=== PATIENT | female | born 1995 | race Hispanic/Latino ===

== ENCOUNTER 2017-12-28 07:56 | Emergency (ER) | payer OTHER ==
[~2017-12-28 07:56] MED LIST: HYDR200T4 PO; LEVO500T89 PO; PANT20TA12 PO
[2017-12-28] MEDS ORDERED: DEXAMETHASONE SOD PHOSPHATE 10MG/ML 1ML VIAL ONE (08:31)
[2017-12-28] MEDS ORDERED: KETOROLAC TROMETHAMINE 30MG/ML ONE (08:32)
[2017-12-28 08:35] LABS: BASOPHILS % (AUTO) 0.3 % (0.0-5.0); EOSINOPHILS % (AUTO) 0.2 % (0.0-8.0); HEMATOCRIT 30.9 % (36-48); LYMPHOCYTES % (AUTO) 18.2 % (21.0-51.0); MEAN CORPUSCULAR HEMOGLOBIN 27.4 pg (27.0-33.0); MEAN CORPUSCULAR HGB CONC 35.8 g/dL (32.0-36.0); MEAN CORPUSCULAR VOLUME 76.6 fL (80-100); MONOCYTES % (AUTO) 5.3 % (3.0-13.0); NUCLEATED RED BLOOD CELLS 0.1 % (0.0-0.19); PLATELET COUNT (AUTO) 117 K/uL (130-400); RED BLOOD CELL COUNT(AUTO) 4.03 MIL/uL (4.00-5.50); RED CELL DISTRIBUTION WIDTH 14.9 % (11.0-15.5); WHITE BLOOD COUNT (AUTO) 5.3 K/uL (4.8-10.8)
[2017-12-28 08:45] LABS: POTASSIUM 3.6 mmol/L (3.5-5.1)
[2017-12-28 08:51] LABS: ALBUMIN 3.9 g/dL (3.5-5.0); BILIRUBIN,TOTAL 0.7 mg/dL (0.2-1.0); TOTAL PROTEIN, SERUM 7.8 g/dL (6.0-8.3)
[2017-12-28 09:43] LABS: ERYTHROCYTE SEDIMENTATION RATE 48 MM/HR (0-15)
[2017-12-28] MEDS ORDERED: MORPHINE SULFATE 4 MG/1ML SYG ONE (11:48)
[2017-12-28] MEDS ORDERED: ONDANSETRON HCL MDV 20ML 2 MG/ML VIAL ONE (11:48)
== END 2017-12-28 13:34 | disposition home or self-care (01) ==
LOC: EDH 07:56
DX: M32.19 Other organ or system involvement in systemic lupus erythematosus (principal); I10 Essential (primary) hypertension; M19.90 Unspecified osteoarthritis, unspecified site; Z79.899 Other long term (current) drug therapy
CPT/HCPCS: 36415; 80053; 85025; 85651; 96374; 96375; 99284; J1100; J1885; J2270

== ENCOUNTER 2018-02-21 06:29 | Emergency (ER) | payer OTHER ==
[2018-02-21 08:02] LABS: BASOPHILS % (AUTO) 0.5 % (0.0-5.0); EOSINOPHILS % (AUTO) 0.2 % (0.0-8.0); HEMATOCRIT 31.6 % (36-48); LYMPHOCYTES % (AUTO) 13.6 % (21.0-51.0); MEAN CORPUSCULAR HEMOGLOBIN 26.6 pg (27.0-33.0); MEAN CORPUSCULAR VOLUME 78.2 fL (80-100); MONOCYTES % (AUTO) 7.2 % (3.0-13.0); NEUTROPHILS % (AUTO) 78.5 % (40.0-77.0); PLATELET COUNT (AUTO) 159 K/uL (130-400); RED BLOOD CELL COUNT(AUTO) 4.03 MIL/uL (4.00-5.50); RED CELL DISTRIBUTION WIDTH 16.2 % (11.0-15.5)
[2018-02-21 08:11] LABS: CREATININE 0.8 mg/dL (0.5-1.5)
[2018-02-21] MEDS ORDERED: ONDANSETRON HCL 4 MG/2 ML VIAL ONE (08:11)
[2018-02-21] MEDS ORDERED: METHYLPREDNISOLONE SOD SUCC 125MG/2ML VIAL ONE (08:11)
[2018-02-21] MEDS ORDERED: MORPHINE SULFATE 4 MG/1ML SYG ONE (08:11)
[2018-02-21] MEDS ORDERED: SODIUM CHLORIDE 0.9% 500ML 500 ML IV ONE (08:11)
[2018-02-21 08:17] LABS: ALBUMIN 3.3 g/dL (3.5-5.0); BILIRUBIN,TOTAL 0.3 mg/dL (0.2-1.0); TOTAL PROTEIN, SERUM 6.9 g/dL (6.0-8.3)
[2018-02-21 08:21] LABS: INR 0.92 (0.85-1.15); PARTIAL THROMBOPLASTIN TIME 28.1 SEC (26.3-35.5); PROTHROMBIN TIME 9.7 SEC (9.6-11.6)
== END 2018-02-21 09:59 | disposition home or self-care (01) ==
LOC: EDH 06:29
DX: M32.9 Systemic lupus erythematosus, unspecified (principal); M79.602 Pain in left arm; M19.90 Unspecified osteoarthritis, unspecified site; I10 Essential (primary) hypertension
CPT/HCPCS: 36415; 80053; 84703; 85025; 85610; 85651; 85730; 93005; 93971; 96374; 96375; 99285; J2270; J2405; J2930; J7040

== ENCOUNTER 2021-06-20 21:41 | Inpatient (IN) | payer BC, OTHER ==
[~2021-06-20] VITALS: Ht 162.6 cm; Wt 92.4 kg
[~2021-06-20 21:41] MED LIST changes: +ALEN35TA53 PO; +BENA10TA77 PO; +CHOL50004 PO; -LEVO500T89 PO; +METO50TA18 PO; +MYCO500T PO; -PANT20TA12 PO; +PRED10TA3 PO
[2021-06-20 22:35] LABS: HEMATOCRIT 28.4 % (36-48); MEAN CORPUSCULAR HEMOGLOBIN 25.5 pg (27.0-33.0); MEAN CORPUSCULAR HGB CONC 33.1 g/dL (32.0-36.0); PLATELET COUNT (AUTO) 62 K/uL (130-400); RED BLOOD CELL COUNT(AUTO) 3.69 MIL/uL (4.00-5.50); RED CELL DISTRIBUTION WIDTH 14.7 % (11.0-15.5); WHITE BLOOD COUNT (AUTO) 3.4 K/uL (4.8-10.8)
[2021-06-20 22:41] LABS: CREATININE 1.8 mg/dL (0.5-1.5); POTASSIUM 4.2 mmol/L (3.5-5.1)
[2021-06-20 22:45] LABS: ALBUMIN 3.1 g/dL (3.5-5.0); BILIRUBIN,TOTAL 0.5 mg/dL (0.2-1.0); TOTAL PROTEIN, SERUM 6.9 g/dL (6.0-8.3)
[2021-06-20 22:51] LABS: BASOPHILS % (AUTO) 0.3 % (0.0-5.0); LYMPHOCYTES % (AUTO) 13.1 % (21.0-51.0); MONOCYTES % (AUTO) 8.1 % (3.0-13.0); NEUTROPHILS % (AUTO) 78.2 % (40.0-77.0)
[2021-06-20 23:49] LABS: BAND NEUTROPHILS % (MANUAL) 15 % (0-2); EOSINOPHILS % (MANUAL) 1 % (1-6); LYMPHOCYTES % (MANUAL) 11 % (22-44); MAN.DIFF COMMENT-IMPRESSION MANUAL DIFFERENTIAL; MONOCYTES % (MANUAL) 3 % (2-9); SEGMENTED NEUTROPHILS % 70 % (40-70)
[2021-06-21] MEDS ORDERED: CEFTRIAXONE 1G VIAL IVP ONE (01:30)
[2021-06-21] MEDS ORDERED: 0.9%NACL 1000ML 1,000 ML IV ONE (01:30)
[2021-06-21] MEDS ORDERED: ACETAMINOPHEN 500 MG TABLET PO ONE (01:30)
[2021-06-21 02:26] LABS: CRP QUANTITATIVE 3.2 mg/L (0.00-9.0)
[2021-06-21 04:36] LABS: APPEARANCE,URINE Cloudy (CLEAR); BILIRUBIN,URINE Negative (NEGATIVE); COLOR,URINE Dark Yellow (YELLOW); GLUCOSE, URINE (UA) Negative (NEGATIVE); KETONES,URINE Trace mg/dL (NEGATIVE); LEUKOCYTE ESTERASE ,URINE Negative (NEGATIVE); NITRATE,URINE Negative (NEGATIVE); OCCULT BLOOD,URINE Moderate (NEGATIVE); PROTEIN,URINE >=1000 mg/dL (NEGATIVE); UROBILINOGEN,URINE 0.2 mg/dL (0.2-1.0)
[2021-06-21 04:54] LABS: BACTERIA,URINE None Seen /HPF (None Seen); SQUAMOUS EPITHELIAL CELL,UR Few /HPF (0-2); WBC,URINE None Seen /HPF (0-1)
[2021-06-21 04:55] LABS: AMORPHOUS SEDIMENT,UR Few /LPF (None Seen); HYALINE CASTS, URINE 0-1 /LPF (0-1 /LPF)
[2021-06-21] MEDS ORDERED: SOLU-MEDROL 125MG VIAL IVP ONE (05:30)
[2021-06-21] MEDS ORDERED: ACETAMINOPHEN 325 MG TAB PO PRN (05:30)
[2021-06-21] MEDS ORDERED: NITROGLYCERIN 0.4 MG SL TAB SL PRN (05:30)
[2021-06-21] MEDS ORDERED: ONDANSETRON 4MG INJ IV PRN (05:30)
[2021-06-21] MEDS: 0.9%NACL 1000ML 1,000 ML IV SCH ×2 (07:10→15:30)
[2021-06-21 07:57] LABS: HEMATOCRIT 25.8 % (36-48); LYMPHOCYTES % (AUTO) 27.5 % (21.0-51.0); MEAN CORPUSCULAR HEMOGLOBIN 25.7 pg (27.0-33.0); MEAN CORPUSCULAR HGB CONC 32.9 g/dL (32.0-36.0); MEAN CORPUSCULAR VOLUME 77.9 fL (79-99); MONOCYTES % (AUTO) 7.7 % (3.0-13.0); NEUTROPHILS % (AUTO) 64.3 % (40.0-77.0); PLATELET COUNT (AUTO) 58 K/uL (130-400); RED BLOOD CELL COUNT(AUTO) 3.31 MIL/uL (4.00-5.50); RED CELL DISTRIBUTION WIDTH 14.7 % (11.0-15.5); WHITE BLOOD COUNT (AUTO) 2.2 K/uL (4.8-10.8)
[2021-06-21 08:12] LABS: INR 1.04 (0.85-1.15); PROTHROMBIN TIME 11.3 SEC (9.6-11.6)
[2021-06-21 08:13] LABS: PARTIAL THROMBOPLASTIN TIME 36.4 SEC (26.3-35.5)
[2021-06-21 08:18] LABS: ALBUMIN 2.8 g/dL (3.5-5.0); BILIRUBIN,TOTAL 0.4 mg/dL (0.2-1.0); MAGNESIUM 1.6 mg/dL (1.80-2.40); POTASSIUM 4.1 mmol/L (3.5-5.1); TOTAL PROTEIN, SERUM 6.2 g/dL (6.0-8.3)
[2021-06-21 08:41] LABS: % IRON SATURATION 9.6 % (22-44)
[2021-06-21] MEDS: FAMOTIDINE 20MG TAB PO SCH (09:00)
[2021-06-21] MEDS ORDERED: SOLU-MEDROL 125MG VIAL ONE (10:03)
[2021-06-21] MEDS ORDERED: MAGNESIUM 2GM PREMIX 50ML 50 ML IV PRN (15:30)
[2021-06-21] MEDS: CEFTRIAXONE 1G VIAL IVP SCH (15:35)
[2021-06-21] MEDS: SOLU-MEDROL 40MG VIAL IVP SCH (15:35)
[2021-06-21] MEDS: ACETAMINOPHEN 325 MG TAB PO PRN ×2 (20:19→22:23)
[2021-06-21] MEDS ORDERED: HYDROMORPHONE 0.5 MG SYG (0.5MG/0.5ML) IVP PRN (20:30)
[2021-06-22] VITALS (7 sets, daily range): BP systolic 129–168; BP diastolic 92–111
[2021-06-22] MEDS ORDERED: ASCO500C18 PO (00:26)
[2021-06-22] MEDS ORDERED: VITAD50000 PO (00:26)
[2021-06-22] MEDS ORDERED: ALBUHFA IH (00:26)
[2021-06-22] MEDS ORDERED: ONDA4TAB10 PO (00:26)
[2021-06-22] MEDS ORDERED: FLUT1BLS IH (00:26)
[2021-06-22] MEDS: SOLU-MEDROL 40MG VIAL IVP SCH ×2 (01:04→08:09)
[2021-06-22] MEDS: HYDRALAZINE 20MG/ML VIAL IV SCH (01:04)
[2021-06-22] MEDS: 0.9%NACL 1000ML 1,000 ML IV SCH ×3 (01:30→16:26)
[2021-06-22 05:44] LABS: HEMATOCRIT 26.7 % (36-48); MEAN CORPUSCULAR HEMOGLOBIN 25.4 pg (27.0-33.0); MEAN CORPUSCULAR VOLUME 77.2 fL (79-99); MONOCYTES % (AUTO) 6.3 % (3.0-13.0); NEUTROPHILS % (AUTO) 43.7 % (40.0-77.0); PLATELET COUNT (AUTO) 59 K/uL (130-400); RED BLOOD CELL COUNT(AUTO) 3.46 MIL/uL (4.00-5.50)
[2021-06-22 05:55] LABS: WHITE BLOOD COUNT (AUTO) 1.1 K/uL (4.8-10.8)
[2021-06-22 05:59] LABS: ALANINE AMINOTRANSFERASE 38 U/L (12-78); ALBUMIN 2.9 g/dL (3.5-5.0); ASPARTATE AMINOTRANSFERASE 77 U/L (10-37); BILIRUBIN,TOTAL 0.3 mg/dL (0.2-1.0); CARBON DIOXIDE 16 mmol/L (21-32); CHLORIDE 109 mmol/L (101-111); CREATININE 1.5 mg/dL (0.5-1.5); GLOMERULAR FILTR. RATE CALC 45 mL/min (>60); GLUCOSE,RANDOM 129 mg/dL (70-105); POTASSIUM 4.1 mmol/L (3.5-5.1); SODIUM SERUM 140 mmol/L (136-145); TOTAL PROTEIN, SERUM 6.4 g/dL (6.0-8.3); UREA NITROGEN, BLOOD 34 mg/dL (7-18)
[2021-06-22 06:00] LABS: CRP QUANTITATIVE < 2.00 mg/L (0.00-9.0)
[2021-06-22 06:58] LABS: ERYTHROCYTE SEDIMENTATION RATE 30 MM/HR (0-20)
[2021-06-22] MEDS: FAMOTIDINE 20MG TAB PO SCH (08:09)
[2021-06-22] MEDS ORDERED: COMPOUND IV MISC 1 EACH IVSOLN MISC PRN (10:30)
[2021-06-22] MEDS: IRON SUCROSE COMPLEX 300 MG in 0.9%NACL 50ML 50 ML IV SCH (12:54)
[2021-06-22] MEDS: METRONIDAZOLE 500MG/100ML BAG 100 ML IVPB SCH ×2 (16:25→20:57)
[2021-06-22] MEDS: CEFTRIAXONE 1G VIAL IVP SCH (16:25)
[2021-06-22 19:41] LABS: AMPHET/METH SCREEN,URINE NEGATIVE (NEGATIVE); BARBITURATE SCREEN, URINE NEGATIVE (NEGATIVE); BENZODIAZEPINES SCREEN,URINE NEGATIVE (NEGATIVE); CANNABINOID SCREEN,URINE NEGATIVE (NEGATIVE); COCAINE SCREEN,URINE NEGATIVE (NEGATIVE); OPIATE SCREEN,URINE NEGATIVE (NEGATIVE); PHENCYCLIDINE SCREEN,URINE NEGATIVE (NEGATIVE)
[2021-06-22] MEDS: ALBUTEROL INHALER IH SCH (20:57)
[2021-06-22] MEDS: MYCOPHENOLATE MOFETIL 250 MG CAPSULE PO SCH (20:57)
[2021-06-22] MEDS: HYDROXYCHLOROQUINE SULFATE 200 MG TAB PO SCH (20:57)
[2021-06-23] VITALS (19 sets, daily range): BP systolic 119–156; BP diastolic 75–110
[2021-06-23] MEDS: HYDRALAZINE 20MG/ML VIAL IV SCH (01:59)
[2021-06-23] MEDS: 0.9%NACL 1000ML 1,000 ML IV SCH ×2 (01:59→05:15)
[2021-06-23] MEDS ORDERED: HYDRALAZINE 20MG/ML VIAL IV SCH (02:00)
[2021-06-23 04:29] LABS: HEMATOCRIT 25.4 % (36-48); LYMPHOCYTES % (AUTO) 24.4 % (21.0-51.0); MEAN CORPUSCULAR HEMOGLOBIN 25.9 pg (27.0-33.0); MEAN CORPUSCULAR HGB CONC 33.5 g/dL (32.0-36.0); MEAN CORPUSCULAR VOLUME 77.4 fL (79-99); MONOCYTES % (AUTO) 14.7 % (3.0-13.0); NEUTROPHILS % (AUTO) 60.5 % (40.0-77.0); PLATELET COUNT (AUTO) 75 K/uL (130-400); RED BLOOD CELL COUNT(AUTO) 3.28 MIL/uL (4.00-5.50); RED CELL DISTRIBUTION WIDTH 15.5 % (11.0-15.5); WHITE BLOOD COUNT (AUTO) 2.4 K/uL (4.8-10.8)
[2021-06-23 04:37] LABS: ALBUMIN 2.7 g/dL (3.5-5.0); BILIRUBIN,TOTAL 0.3 mg/dL (0.2-1.0); CREATININE 1.4 mg/dL (0.5-1.5); MAGNESIUM 2.3 mg/dL (1.80-2.40); PHOSPHORUS 4.4 mg/dL (2.5-4.9); POTASSIUM 3.8 mmol/L (3.5-5.1)
[2021-06-23] MEDS: METRONIDAZOLE 500MG/100ML BAG 100 ML IVPB SCH ×3 (05:13→20:49)
[2021-06-23 05:29] LABS: BAND NEUTROPHILS % (MANUAL) 10 % (0-2); LYMPHOCYTES % (MANUAL) 12 % (22-44); MAN.DIFF COMMENT-IMPRESSION MANUAL DIFFERENTIAL; MONOCYTES % (MANUAL) 8 % (2-9); REACTIVE LYMPHOCYTES 4 % (0-0); SEGMENTED NEUTROPHILS % 66 % (40-70)
[2021-06-23 05:30] LABS: PLATELET MORPHOLOGY COMMENT DECREASED
[2021-06-23] MEDS: FAMOTIDINE 20MG TAB PO SCH (07:55)
[2021-06-23] MEDS: HYDROXYCHLOROQUINE SULFATE 200 MG TAB PO SCH ×2 (07:55→20:50)
[2021-06-23] MEDS: MYCOPHENOLATE MOFETIL 250 MG CAPSULE PO SCH ×2 (07:56→20:50)
[2021-06-23] MEDS: AMLODIPINE 5 MG TAB PO SCH (07:56)
[2021-06-23] MEDS: ASCORBIC ACID 500 MG TAB PO SCH (07:57)
[2021-06-23] MEDS: FLUTICASONE/VILANTEROL 1 EACH BLST.W.DEV IH SCH (09:00)
[2021-06-23] MEDS ORDERED: LEVOFLOXACIN 750 MG/D5W 150 ML 150 ML IV SCH (09:00)
[2021-06-23] MEDS: ALBUTEROL INHALER IH SCH ×4 (09:00→20:56)
[2021-06-23] MEDS ORDERED: PROPOFOL 10 MG/ML 20ML VIAL IV ONE (12:07)
[2021-06-23] MEDS: SOLU-MEDROL 40MG VIAL IVP SCH ×2 (14:06→20:50)
[2021-06-23] MEDS: IRON SUCROSE COMPLEX 300 MG in 0.9%NACL 50ML 50 ML IV SCH (14:07)
[2021-06-23] MEDS ORDERED: PROMETHAZINE HCL 25 MG/ML 1ML AMPULE IM SCH (16:30)
[2021-06-23] MEDS: CEFTRIAXONE 1G VIAL IVP SCH (17:10)
[2021-06-24] VITALS (9 sets, daily range): BP systolic 127–146; BP diastolic 56–104
[2021-06-24] MEDS ORDERED: HYDRALAZINE 20MG/ML VIAL IV SCH (05:00)
[2021-06-24] MEDS: METRONIDAZOLE 500MG/100ML BAG 100 ML IVPB SCH ×2 (05:17→06:00)
[2021-06-24 05:21] LABS: HEMATOCRIT 24.7 % (36-48); LYMPHOCYTES % (AUTO) 13.5 % (21.0-51.0); MEAN CORPUSCULAR HEMOGLOBIN 25.1 pg (27.0-33.0); MEAN CORPUSCULAR HGB CONC 32.4 g/dL (32.0-36.0); MEAN CORPUSCULAR VOLUME 77.4 fL (79-99); MONOCYTES % (AUTO) 7.3 % (3.0-13.0); NEUTROPHILS % (AUTO) 78.7 % (40.0-77.0); PLATELET COUNT (AUTO) 71 K/uL (130-400); RED BLOOD CELL COUNT(AUTO) 3.19 MIL/uL (4.00-5.50); RED CELL DISTRIBUTION WIDTH 15.7 % (11.0-15.5); WHITE BLOOD COUNT (AUTO) 1.9 K/uL (4.8-10.8)
[2021-06-24 05:48] LABS: ALBUMIN 2.7 g/dL (3.5-5.0); BILIRUBIN,TOTAL 0.3 mg/dL (0.2-1.0); CREATININE 1.2 mg/dL (0.5-1.5); POTASSIUM 3.8 mmol/L (3.5-5.1)
[2021-06-24] MEDS: ALBUTEROL INHALER IH SCH ×4 (09:00→21:00)
[2021-06-24] MEDS: FAMOTIDINE 20MG TAB PO SCH (09:00)
[2021-06-24] MEDS: FLUTICASONE/VILANTEROL 1 EACH BLST.W.DEV IH SCH (09:00)
[2021-06-24] MEDS: PANTOPRAZOLE 40 MG TAB DR PO SCH (09:44)
[2021-06-24] MEDS: AMLODIPINE 5 MG TAB PO SCH (09:44)
[2021-06-24] MEDS: HYDROXYCHLOROQUINE SULFATE 200 MG TAB PO SCH ×2 (09:44→21:23)
[2021-06-24] MEDS: MYCOPHENOLATE MOFETIL 250 MG CAPSULE PO SCH ×2 (09:44→21:24)
[2021-06-24] MEDS: ASCORBIC ACID 500 MG TAB PO SCH (09:44)
[2021-06-24] MEDS: PREDNISONE 20 MG TABLET PO SCH (21:23)
[2021-06-24] MEDS: FERROUS GLUCONATE TABLET PO SCH (21:24)
[2021-06-25 04:19] VITALS: BP 138/86
[2021-06-25 05:20] LABS: ALBUMIN 2.8 g/dL (3.5-5.0); BILIRUBIN,TOTAL 0.4 mg/dL (0.2-1.0); CREATININE 1.1 mg/dL (0.5-1.5); EOSINOPHILS % (AUTO) 0.5 % (0.0-8.0); MEAN CORPUSCULAR HEMOGLOBIN 25.6 pg (27.0-33.0); MEAN CORPUSCULAR HGB CONC 32.4 g/dL (32.0-36.0); MEAN CORPUSCULAR VOLUME 78.9 fL (79-99); MONOCYTES % (AUTO) 9.7 % (3.0-13.0); NEUTROPHILS % (AUTO) 65.1 % (40.0-77.0); PLATELET COUNT (AUTO) 85 K/uL (130-400); POTASSIUM 3.7 mmol/L (3.5-5.1); RED BLOOD CELL COUNT(AUTO) 3.17 MIL/uL (4.00-5.50); RED CELL DISTRIBUTION WIDTH 15.7 % (11.0-15.5); TOTAL PROTEIN, SERUM 5.8 g/dL (6.0-8.3); WHITE BLOOD COUNT (AUTO) 1.9 K/uL (4.8-10.8)
[2021-06-25 08:00] VITALS: BP 136/94
[2021-06-25] MEDS: ASCORBIC ACID 500 MG TAB PO SCH (08:41)
[2021-06-25] MEDS: FAMOTIDINE 20MG TAB PO SCH (08:41)
[2021-06-25] MEDS: FERROUS GLUCONATE TABLET PO SCH ×4 (08:41→21:13)
[2021-06-25] MEDS: HYDROXYCHLOROQUINE SULFATE 200 MG TAB PO SCH ×2 (08:41→21:07)
[2021-06-25] MEDS: PANTOPRAZOLE 40 MG TAB DR PO SCH (08:42)
[2021-06-25] MEDS: PREDNISONE 20 MG TABLET PO SCH ×3 (08:42→21:07)
[2021-06-25] MEDS: AMLODIPINE 5 MG TAB PO SCH (08:42)
[2021-06-25] MEDS: FLUTICASONE/VILANTEROL 1 EACH BLST.W.DEV IH SCH (08:43)
[2021-06-25] MEDS: ALBUTEROL INHALER IH SCH ×4 (08:43→21:00)
[2021-06-25] MEDS: MYCOPHENOLATE MOFETIL 250 MG CAPSULE PO SCH ×2 (08:43→21:07)
[2021-06-25] MEDS: DOCUSATE SODIUM 100 MG CAP PO SCH (09:00)
[2021-06-25 12:00] VITALS: BP 143/98
[2021-06-25 16:00] VITALS: BP 138/97
[2021-06-25 19:28] VITALS: BP 145/106
[2021-06-25] MEDS: LEVOFLOXACIN 750 MG TABLET PO SCH (21:07)
[2021-06-25 21:19] VITALS: BP 140/93
[2021-06-26 00:08] VITALS: BP 133/91
[2021-06-26 04:27] VITALS: BP 128/97
[2021-06-26 07:30] VITALS: BP 143/98
[2021-06-26] MEDS: FLUTICASONE/VILANTEROL 1 EACH BLST.W.DEV IH SCH (09:00)
[2021-06-26] MEDS: ALBUTEROL INHALER IH SCH ×3 (09:00→17:00)
[2021-06-26] MEDS: LEVOFLOXACIN 750 MG TABLET PO SCH (09:48)
[2021-06-26] MEDS: FAMOTIDINE 20MG TAB PO SCH (09:48)
[2021-06-26] MEDS: MYCOPHENOLATE MOFETIL 250 MG CAPSULE PO SCH (09:49)
[2021-06-26] MEDS: PANTOPRAZOLE 40 MG TAB DR PO SCH (09:49)
[2021-06-26] MEDS: PREDNISONE 20 MG TABLET PO SCH ×2 (09:50→14:20)
[2021-06-26] MEDS: FERROUS GLUCONATE TABLET PO SCH ×2 (09:50→14:19)
[2021-06-26] MEDS: DOCUSATE SODIUM 100 MG CAP PO SCH (09:50)
[2021-06-26] MEDS: AMLODIPINE 5 MG TAB PO SCH (09:50)
[2021-06-26] MEDS: HYDROXYCHLOROQUINE SULFATE 200 MG TAB PO SCH (09:50)
[2021-06-26] MEDS: ASCORBIC ACID 500 MG TAB PO SCH (09:51)
[2021-06-26 11:00] VITALS: BP 147/98
[2021-06-26 13:24] LABS: HEMATOCRIT 25.2 % (36-48); LYMPHOCYTES % (AUTO) 21.2 % (21.0-51.0); MEAN CORPUSCULAR HEMOGLOBIN 26.1 pg (27.0-33.0); MEAN CORPUSCULAR HGB CONC 32.1 g/dL (32.0-36.0); MEAN CORPUSCULAR VOLUME 81.3 fL (79-99); MONOCYTES % (AUTO) 11.5 % (3.0-13.0); NEUTROPHILS % (AUTO) 63.3 % (40.0-77.0); PLATELET COUNT (AUTO) 118 K/uL (130-400); RED CELL DISTRIBUTION WIDTH 16.2 % (11.0-15.5); WHITE BLOOD COUNT (AUTO) 2.8 K/uL (4.8-10.8)
[2021-06-26] MEDS ORDERED: PRED20B PO (14:06)
[2021-06-26] MEDS ORDERED: PANT40TA PO (14:06)
[2021-06-26] MEDS ORDERED: FERR324T17 PO (14:06)
[2021-06-26] MEDS ORDERED: LEVO750T46 PO (14:06)
[2021-06-26] MEDS ORDERED: AMLO5TAB4 PO (14:06)
[2021-06-26 14:18] LABS: LYMPHOCYTES % (MANUAL) 20 % (22-44); MAN.DIFF COMMENT-IMPRESSION MANUAL DIFFERENTIAL; MONOCYTES % (MANUAL) 3 % (2-9); SEGMENTED NEUTROPHILS % 77 % (40-70)
[2021-06-26 14:19] LABS: PLATELET MORPHOLOGY COMMENT SLIGHTLY DECREASED
[2021-06-26 15:30] VITALS: BP 146/109
[2021-06-29] MEDS ORDERED: ERGOCALCIFEROL (VITAMIN D2) 50,000 UNIT CAPSULE PO SCH (09:00)
== END 2021-06-26 18:04 | disposition home or self-care (01) | DRG 872 ==
LOC: EDH 21:41 → EDHIP 06-21 05:21 → 4AH 06-22 01:20
PROVIDERS: ADMIT Internal Medicine; ATTEND Internal Medicine
PROC: 0DB98ZX Excision of Duodenum, Via Natural or Artificial Opening Endoscopic, Diagnostic (ICD-10-PCS; principal; 2021-06-23)
PROC: 0DB68ZX Excision of Stomach, Via Natural or Artificial Opening Endoscopic, Diagnostic (ICD-10-PCS; 2021-06-23)
PROC: 0DB58ZX Excision of Esophagus, Via Natural or Artificial Opening Endoscopic, Diagnostic (ICD-10-PCS; 2021-06-23)
DX: A41.9 Sepsis, unspecified organism (principal); A09 Infectious gastroenteritis and colitis, unspecified; E22.2 Syndrome of inappropriate secretion of antidiuretic hormone; E87.2 Acidosis; D61.818 Other pancytopenia; N17.9 Acute kidney failure, unspecified; E44.0 Moderate protein-calorie malnutrition; N39.0 Urinary tract infection, site not specified; I11.0 Hypertensive heart disease with heart failure; Z20.822 Contact with and (suspected) exposure to COVID-19; M19.90 Unspecified osteoarthritis, unspecified site; R77.8 Other specified abnormalities of plasma proteins; D50.9 Iron deficiency anemia, unspecified; Z68.35 Body mass index [BMI] 35.0-35.9, adult; E87.8 Other disorders of electrolyte and fluid balance, not elsewhere classified; K76.0 Fatty (change of) liver, not elsewhere classified; R16.1 Splenomegaly, not elsewhere classified; K29.80 Duodenitis without bleeding; R74.8 Abnormal levels of other serum enzymes; E83.51 Hypocalcemia; I50.9 Heart failure, unspecified; M32.9 Systemic lupus erythematosus, unspecified; K21.00 Gastro-esophageal reflux disease with esophagitis, without bleeding; K29.00 Acute gastritis without bleeding; Z91.19 Patient's noncompliance with other medical treatment and regimen; Z83.3 Family history of diabetes mellitus; Z82.3 Family history of stroke; Z82.5 Family history of asthma and other chronic lower respiratory diseases; Z82.0 Family history of epilepsy and other diseases of the nervous system; Z82.49 Family history of ischemic heart disease and other diseases of the circulatory system
CPT/HCPCS: 36415; 43239; 71045; 74176; 78580; 80053; 80305; 81001; 82270; 82306; 82330; 82728; 82977; 83540; 83550; 83605; 83615; 83690; 83735; 84100; 84145; 84484; 85025; 85378; 85610; 85651; 85730; 86140; 86677; 87040; 87046; 87088; 87507; 87635; 87804; 93005; A9540; C9803; G0378; J0360; J0696; J1756; J1956; J2550; J2704; J2920; J2930; J3475; J3490; J7030; J7517

== ENCOUNTER 2022-01-16 15:52 | Inpatient (IN) | payer BC ==
[~2022-01-16] VITALS: Ht 165.1 cm; Wt 118.2 kg
[~2022-01-16 15:52] MED LIST changes: +ALBUHFA IH; -ALEN35TA53 PO; +AMLO5TAB4 PO; +ASCO500C18 PO; -BENA10TA77 PO; -CHOL50004 PO; +FERR324T17 PO; +FLUT1BLS IH; +LEVO750T46 PO; -METO50TA18 PO; +ONDA4TAB10 PO; +PANT40TA PO; +PRED20B PO; +VITAD50000 PO
[2022-01-16 16:32] LABS: BASOPHILS % (AUTO) 0.2 % (0.0-5.0); EOSINOPHILS % (AUTO) 1.3 % (0.0-8.0); LYMPHOCYTES % (AUTO) 18.3 % (21.0-51.0); MEAN CORPUSCULAR HEMOGLOBIN 25.4 pg (27.0-33.0); MEAN CORPUSCULAR HGB CONC 31.7 g/dL (32.0-36.0); MEAN CORPUSCULAR VOLUME 80.4 fL (79-99); NEUTROPHILS % (AUTO) 68.8 % (40.0-77.0); PLATELET COUNT (AUTO) 95 K/uL (130-400); RED BLOOD CELL COUNT(AUTO) 2.24 MIL/uL (4.00-5.50); RED CELL DISTRIBUTION WIDTH 16.6 % (11.0-15.5); WHITE BLOOD COUNT (AUTO) 6.4 K/uL (4.8-10.8)
[2022-01-16 16:42] LABS: CREATININE 2.9 mg/dL (0.5-1.5); POTASSIUM 3.8 mmol/L (3.5-5.1)
[2022-01-16 16:45] LABS: INR 0.99 (0.85-1.15); PROTHROMBIN TIME 10.8 SEC (9.6-11.6)
[2022-01-16 16:51] LABS: ALBUMIN 2.2 g/dL (3.5-5.0); BILIRUBIN,TOTAL 0.2 mg/dL (0.2-1.0); TOTAL PROTEIN, SERUM 4.8 g/dL (6.0-8.3)
[2022-01-16] MEDS ORDERED: 0.9%NACL 1000ML 1,000 ML IV SCH (17:00)
[2022-01-16 17:21] LABS: BAND NEUTROPHILS % (MANUAL) 7 % (0-2); LYMPHOCYTES % (MANUAL) 16 % (22-44); MAN.DIFF COMMENT-IMPRESSION MANUAL DIFFERENTIAL; PLATELET MORPHOLOGY COMMENT DECREASED; REACTIVE LYMPHOCYTES 3 % (0-0); SEGMENTED NEUTROPHILS % 74 % (40-70)
[2022-01-16 17:47] LABS: APPEARANCE,URINE CLEAR (CLEAR); BILIRUBIN,URINE NEGATIVE (NEGATIVE); COLOR,URINE YELLOW (YELLOW); GLUCOSE, URINE (UA) NEGATIVE (NEGATIVE); KETONES,URINE NEGATIVE (NEGATIVE); LEUKOCYTE ESTERASE ,URINE NEGATIVE (NEGATIVE); NITRATE,URINE NEGATIVE (NEGATIVE); OCCULT BLOOD,URINE MODERATE (NEGATIVE); PROTEIN,URINE >=300 mg/dL (NEGATIVE); UROBILINOGEN,URINE 0.2 mg/dL (0.2-1.0)
[2022-01-16 18:00] LABS: BACTERIA,URINE Few /HPF (None Seen); SQUAMOUS EPITHELIAL CELL,UR Few /HPF (0-2); WBC,URINE 0-1 /HPF (0-1)
[2022-01-16] MEDS ORDERED: TEMAZEPAM 15 MG CAPSULE PO PRN (18:00)
[2022-01-16] MEDS ORDERED: ACETAMINOPHEN 650 MG SUPPOSITORY RC PRN (18:00)
[2022-01-16] MEDS ORDERED: LACTULOSE 20 GM/30 ML UDCUP PO PRN (18:00)
[2022-01-16] MEDS ORDERED: ONDANSETRON 4MG INJ IVP PRN (18:00)
[2022-01-16] MEDS ORDERED: ACETAMINOPHEN 325 MG TAB PO PRN (18:00)
[2022-01-16] MEDS: IPRATROPIUM 0.5 MG/2.5 ML INH IH SCH (18:26)
[2022-01-16] MEDS ORDERED: FUROSEMIDE 20MG VIAL ONE (20:41)
[2022-01-16 22:10] VITALS: BP 149/98
[2022-01-16] MEDS: LABETALOL 20MG SYG IV PRN (23:47)
[2022-01-17] VITALS (8 sets, daily range): BP systolic 149–191; BP diastolic 91–118
[2022-01-17 01:27] LABS: HEMATOCRIT 23.4 % (36-48)
[2022-01-17] MEDS: IPRATROPIUM 0.5 MG/2.5 ML INH IH SCH ×5 (01:29→23:38)
[2022-01-17] MEDS ORDERED: PANT40TA54 PO (02:10)
[2022-01-17] MEDS ORDERED: CALC667C10 PO (02:10)
[2022-01-17] MEDS ORDERED: CARV25TA PO (02:10)
[2022-01-17] MEDS ORDERED: AMLO-258 PO (02:10)
[2022-01-17 05:58] LABS: HEMATOCRIT 25.5 % (36-48); MEAN CORPUSCULAR HEMOGLOBIN 26.5 pg (27.0-33.0); MEAN CORPUSCULAR HGB CONC 33.3 g/dL (32.0-36.0); MEAN CORPUSCULAR VOLUME 79.4 fL (79-99); RED BLOOD CELL COUNT(AUTO) 3.21 MIL/uL (4.00-5.50); RED CELL DISTRIBUTION WIDTH 16.5 % (11.0-15.5); WHITE BLOOD COUNT (AUTO) 6.7 K/uL (4.8-10.8)
[2022-01-17 06:06] LABS: CREATININE 2.8 mg/dL (0.5-1.5); MAGNESIUM 1.1 mg/dL (1.80-2.40); PHOSPHORUS 4.7 mg/dL (2.5-4.9); POTASSIUM 3.8 mmol/L (3.5-5.1)
[2022-01-17 11:46] LABS: HEMATOCRIT 24.6 % (36-48)
[2022-01-17] MEDS: LABETALOL 20MG SYG IV PRN (12:48)
[2022-01-17] MEDS: HYDROMORPHONE 1 MG INJ IVP PRN (12:49)
[2022-01-17] MEDS ORDERED: TORSEMIDE 20 MG TAB PO SCH (18:30)
[2022-01-18 04:46] VITALS: BP 167/96
[2022-01-18 05:15] LABS: BASOPHILS % (AUTO) 0.2 % (0.0-5.0); EOSINOPHILS % (AUTO) 0.7 % (0.0-8.0); LYMPHOCYTES % (AUTO) 21.1 % (21.0-51.0); MEAN CORPUSCULAR HEMOGLOBIN 25.9 pg (27.0-33.0); MEAN CORPUSCULAR VOLUME 78.5 fL (79-99); MONOCYTES % (AUTO) 9.3 % (3.0-13.0); NEUTROPHILS % (AUTO) 67.2 % (40.0-77.0); PLATELET COUNT (AUTO) 100 K/uL (130-400); RED BLOOD CELL COUNT(AUTO) 2.93 MIL/uL (4.00-5.50); RED CELL DISTRIBUTION WIDTH 16.7 % (11.0-15.5)
[2022-01-18 05:28] LABS: ALBUMIN 2.1 g/dL (3.5-5.0); BILIRUBIN,TOTAL 0.4 mg/dL (0.2-1.0); CREATININE 2.8 mg/dL (0.5-1.5); MAGNESIUM 1.1 mg/dL (1.80-2.40); PHOSPHORUS 4.8 mg/dL (2.5-4.9); POTASSIUM 3.4 mmol/L (3.5-5.1); TOTAL PROTEIN, SERUM 4.5 g/dL (6.0-8.3)
[2022-01-18] MEDS: IPRATROPIUM 0.5 MG/2.5 ML INH IH SCH ×4 (06:33→23:51)
[2022-01-18] MEDS: HYDROMORPHONE 1 MG INJ IVP PRN ×2 (07:16→16:50)
[2022-01-18 07:52] VITALS: BP 167/109
[2022-01-18] MEDS: TORSEMIDE 20 MG TAB PO SCH (08:31)
[2022-01-18 12:32] VITALS: BP 166/108
[2022-01-18 16:35] VITALS: BP 178/105
[2022-01-18 20:29] VITALS: BP 149/100
[2022-01-18] MEDS: LABETALOL 20MG SYG IV PRN (23:50)
[2022-01-19 00:35] VITALS: BP 180/124
[2022-01-19] MEDS ORDERED: HYDROMORPHONE 0.5 MG SYG (0.5MG/0.5ML) ONE (01:29)
[2022-01-19 03:40] VITALS: BP 165/110
[2022-01-19] MEDS: LABETALOL 20MG SYG IV PRN ×3 (04:26→16:38)
[2022-01-19 05:22] LABS: BASOPHILS % (AUTO) 0.2 % (0.0-5.0); EOSINOPHILS % (AUTO) 0.9 % (0.0-8.0); HEMATOCRIT 24.1 % (36-48); LYMPHOCYTES % (AUTO) 18.6 % (21.0-51.0); MEAN CORPUSCULAR HEMOGLOBIN 26.5 pg (27.0-33.0); MEAN CORPUSCULAR HGB CONC 33.6 g/dL (32.0-36.0); MEAN CORPUSCULAR VOLUME 78.8 fL (79-99); MONOCYTES % (AUTO) 10.3 % (3.0-13.0); PLATELET COUNT (AUTO) 84 K/uL (130-400); RED BLOOD CELL COUNT(AUTO) 3.06 MIL/uL (4.00-5.50); RED CELL DISTRIBUTION WIDTH 16.8 % (11.0-15.5); WHITE BLOOD COUNT (AUTO) 5.9 K/uL (4.8-10.8)
[2022-01-19 05:42] LABS: ALBUMIN 2.1 g/dL (3.5-5.0); BILIRUBIN,TOTAL 0.4 mg/dL (0.2-1.0); CREATININE 2.7 mg/dL (0.5-1.5); MAGNESIUM 1.1 mg/dL (1.80-2.40); PHOSPHORUS 5.3 mg/dL (2.5-4.9); POTASSIUM 3.5 mmol/L (3.5-5.1); TOTAL PROTEIN, SERUM 4.5 g/dL (6.0-8.3)
[2022-01-19] MEDS: IPRATROPIUM 0.5 MG/2.5 ML INH IH SCH ×4 (06:32→23:42)
[2022-01-19] MEDS: TORSEMIDE 20 MG TAB PO SCH (07:49)
[2022-01-19 08:00] VITALS: BP 225/110
[2022-01-19] MEDS ORDERED: LIDOCAINE HCL-MPF 1% 2ML VIAL IV PRN (08:00)
[2022-01-19] MEDS ORDERED: POTASSIUM CHLORIDE 10MEQ/100ML 100 ML IV PRN (08:00)
[2022-01-19] MEDS: MAGNESIUM 2GM PREMIX 50ML 50 ML IV PRN ×2 (10:33→16:41)
[2022-01-19 12:00] VITALS: BP 200/110
[2022-01-19] MEDS ORDERED: CLONIDINE HCL 0.2 MG TABLET PO SCH ×2 (12:00→12:30)
[2022-01-19 15:00] VITALS: BP 170/100
[2022-01-19] MEDS: CALCIUM AC 667MG CAP PO SCH (16:40)
[2022-01-19] MEDS ORDERED: CLONIDINE HCL 0.1 MG TABLET PO PRN (17:00)
[2022-01-19 19:39] VITALS: BP 147/97
[2022-01-19] MEDS: MYCOPHENOLATE MOFETIL 250 MG CAPSULE PO SCH (21:20)
[2022-01-19] MEDS: FERROUS GLUCONATE TABLET PO SCH (21:20)
[2022-01-19] MEDS: HYDROXYCHLOROQUINE SULFATE 200 MG TAB PO SCH (21:21)
[2022-01-19] MEDS: CARVEDILOL 25 MG TABLET PO SCH (21:21)
[2022-01-20 00:38] VITALS: BP 148/98
[2022-01-20 05:00] VITALS: BP 158/108
[2022-01-20 05:45] LABS: BASOPHILS % (AUTO) 0.2 % (0.0-5.0); EOSINOPHILS % (AUTO) 0.6 % (0.0-8.0); HEMATOCRIT 21.8 % (36-48); LYMPHOCYTES % (AUTO) 23.8 % (21.0-51.0); MEAN CORPUSCULAR HEMOGLOBIN 26.3 pg (27.0-33.0); MEAN CORPUSCULAR HGB CONC 33.9 g/dL (32.0-36.0); MEAN CORPUSCULAR VOLUME 77.6 fL (79-99); MONOCYTES % (AUTO) 11.5 % (3.0-13.0); NEUTROPHILS % (AUTO) 63.3 % (40.0-77.0); PLATELET COUNT (AUTO) 74 K/uL (130-400); RED BLOOD CELL COUNT(AUTO) 2.81 MIL/uL (4.00-5.50); RED CELL DISTRIBUTION WIDTH 17.1 % (11.0-15.5); WHITE BLOOD COUNT (AUTO) 4.8 K/uL (4.8-10.8)
[2022-01-20 06:03] LABS: BILIRUBIN,TOTAL 0.3 mg/dL (0.2-1.0); CREATININE 2.8 mg/dL (0.5-1.5); MAGNESIUM 1.9 mg/dL (1.80-2.40); PHOSPHORUS 5.5 mg/dL (2.5-4.9); TOTAL PROTEIN, SERUM 4.4 g/dL (6.0-8.3)
[2022-01-20] MEDS: IPRATROPIUM 0.5 MG/2.5 ML INH IH SCH ×2 (06:12→11:03)
[2022-01-20 07:50] VITALS: BP 152/102
[2022-01-20] MEDS: HYDROXYCHLOROQUINE SULFATE 200 MG TAB PO SCH (08:30)
[2022-01-20] MEDS: TORSEMIDE 20 MG TAB PO SCH (08:30)
[2022-01-20] MEDS: CALCIUM AC 667MG CAP PO SCH (08:30)
[2022-01-20 08:31] VITALS: BP 152/102
[2022-01-20] MEDS: MYCOPHENOLATE MOFETIL 250 MG CAPSULE PO SCH (08:31)
[2022-01-20] MEDS: CARVEDILOL 25 MG TABLET PO SCH (08:31)
[2022-01-20] MEDS ORDERED: PANTOPRAZOLE 40 MG TAB DR PO SCH (09:00)
[2022-01-20] MEDS ORDERED: AMLODIPINE 5 MG TAB PO SCH ×2 (09:00)
[2022-01-20] MEDS: FERROUS GLUCONATE TABLET PO SCH (09:00)
[2022-01-20] MEDS ORDERED: BREO ELLIPTA 200-25 MCG INH IH SCH (09:00)
[2022-01-20] MEDS ORDERED: ASCORBIC ACID 500 MG TAB PO SCH (09:00)
== END 2022-01-20 10:55 | disposition home or self-care (01) | DRG 683 ==
LOC: EDH 15:52 → INTOOBSV 17:43 → OBSVTOIN 17:43 → EDHIP 17:43 → 3AH 22:01
PROVIDERS: ADMIT Internal Medicine Critical Care Medicine; ATTEND Internal Medicine Critical Care Medicine
PROC: 30233N1 Transfusion of Nonautologous Red Blood Cells into Peripheral Vein, Percutaneous Approach (ICD-10-PCS; principal; 2022-01-16)
DX: N17.9 Acute kidney failure, unspecified (principal); E87.2 Acidosis; E44.0 Moderate protein-calorie malnutrition; Z68.41 Body mass index [BMI] 40.0-44.9, adult; N18.9 Chronic kidney disease, unspecified; D69.6 Thrombocytopenia, unspecified; D50.9 Iron deficiency anemia, unspecified; M32.9 Systemic lupus erythematosus, unspecified; E83.42 Hypomagnesemia; E87.6 Hypokalemia; E83.51 Hypocalcemia; I95.1 Orthostatic hypotension; Z83.3 Family history of diabetes mellitus; Z82.5 Family history of asthma and other chronic lower respiratory diseases; Z82.49 Family history of ischemic heart disease and other diseases of the circulatory system; Z82.3 Family history of stroke; Z79.899 Other long term (current) drug therapy; K52.9 Noninfective gastroenteritis and colitis, unspecified; D72.819 Decreased white blood cell count, unspecified; E88.09 Other disorders of plasma-protein metabolism, not elsewhere classified; Z79.51 Long term (current) use of inhaled steroids; E66.9 Obesity, unspecified
CPT/HCPCS: 36415; 36430; 71045; 76775; 80048; 80053; 81001; 81050; 82270; 82948; 83036; 83520; 83690; 83735; 83880; 84100; 84145; 84484; 84560; 84703; 85014; 85018; 85025; 85027; 85610; 85730; 86850; 86900; 86901; 86923; 93306; 94640; 94664; G0378; J1170; J1940; J3475; J7517; P9016

== ENCOUNTER 2022-02-12 16:12 | Inpatient (IN) | payer BC ==
[~2022-02-12] VITALS: Ht 165.1 cm; Wt 109.9 kg
[~2022-02-12 16:12] MED LIST changes: +AMLO-258 PO; +CALC667C10 PO; +CARV25TA PO; +PANT40TA54 PO
[2022-02-12 16:55] LABS: BASOPHILS % (AUTO) 0.3 % (0.0-5.0); EOSINOPHILS % (AUTO) 1.5 % (0.0-8.0); MEAN CORPUSCULAR HEMOGLOBIN 26.5 pg (27.0-33.0); MEAN CORPUSCULAR HGB CONC 32.3 g/dL (32.0-36.0); MEAN CORPUSCULAR VOLUME 82.1 fL (79-99); MONOCYTES % (AUTO) 5.7 % (3.0-13.0); NEUTROPHILS % (AUTO) 76.1 % (40.0-77.0); PLATELET COUNT (AUTO) 96 K/uL (130-400); RED BLOOD CELL COUNT(AUTO) 2.68 MIL/uL (4.00-5.50); WHITE BLOOD COUNT (AUTO) 7.2 K/uL (4.8-10.8)
[2022-02-12 17:09] LABS: CREATININE 3.9 mg/dL (0.5-1.5); POTASSIUM 3.4 mmol/L (3.5-5.1)
[2022-02-12 17:40] LABS: B-TYPE NATRIURETIC PEPTIDE 2190 pg/mL (0-100)
[2022-02-12 17:49] LABS: MAGNESIUM 1.4 mg/dL (1.80-2.40)
[2022-02-12] MEDS ORDERED: NIFEDIPINE 10 MG CAP ONE (18:05)
[2022-02-12 18:10] LABS: BILIRUBIN,TOTAL 0.6 mg/dL (0.2-1.0); TOTAL PROTEIN, SERUM 5.7 g/dL (6.0-8.3)
[2022-02-12 18:17] LABS: APPEARANCE,URINE Clear (CLEAR); BILIRUBIN,URINE Negative (NEGATIVE); COLOR,URINE Yellow (YELLOW); GLUCOSE, URINE (UA) Negative (NEGATIVE); KETONES,URINE Negative (NEGATIVE); LEUKOCYTE ESTERASE ,URINE Negative (NEGATIVE); NITRATE,URINE Negative (NEGATIVE); OCCULT BLOOD,URINE Moderate (NEGATIVE); PROTEIN,URINE 300 mg/dL (NEGATIVE); UROBILINOGEN,URINE 0.2 mg/dL (0.2-1.0)
[2022-02-12] MEDS ORDERED: ASPIRIN 325MG TAB ONE (18:19)
[2022-02-12] MEDS ORDERED: NITROGLYCERIN 1GM OINT 1 INCH/1GM TD ONE (18:20)
[2022-02-12 18:22] LABS: HCG,QUAL RESULT NEGATIVE (NEGATIVE)
[2022-02-12] MEDS ORDERED: IPRATROPIUM/ALBUTEROL SULFATE 3 ML SOLUTION IH SCH (18:30)
[2022-02-12] MEDS ORDERED: ASPIRIN 325MG TAB PO SCH (18:30)
[2022-02-12] MEDS ORDERED: NITROGLYCERIN 1GM OINT 1 INCH/1GM TD SCH (18:30)
[2022-02-12] MEDS ORDERED: NIFEDIPINE 10 MG CAP PO SCH (18:30)
[2022-02-12 18:35] LABS: BACTERIA,URINE Rare /HPF (None Seen); RBC,URINE 0-1 /HPF (0-1)
[2022-02-12 18:36] LABS: SQUAMOUS EPITHELIAL CELL,UR Few /HPF (0-2)
[2022-02-12] MEDS ORDERED: ALBUTEROL 0.083% 2.5 MG/3 ML INH IH PRN (19:00)
[2022-02-12] MEDS ORDERED: HYDRALAZINE 20MG/ML VIAL IV PRN (19:00)
[2022-02-12] MEDS ORDERED: HYDRALAZINE 20MG/ML VIAL IV ONE (19:00)
[2022-02-12 19:42] LABS: ABG BASE EXCESS -9.5 mmol/L (-2.0-3.0); ABG HCO3 13.6 mmol/L (21.0-28.0); ABG OXYGEN SATURATION 97.3 % (95.0-99.0); ABG PCO2 21 mmHg (32-45)
[2022-02-12] MEDS: INSULIN LISPRO 100 UNIT/ML 3ML SQ SCH (21:00)
[2022-02-12] MEDS: SIMVASTATIN 20 MG TABLET PO SCH (21:00)
[2022-02-12] MEDS: HYDROCODONE/ACETAMINOPHEN 5/325 MG TAB PO PRN (21:33)
[2022-02-12 21:40] VITALS: BP 169/114
[2022-02-12] MEDS ORDERED: ONDA4TAB10 PO (22:37)
[2022-02-12] MEDS ORDERED: PRED20 PO (22:37)
[2022-02-12] MEDS ORDERED: AMLO-258 PO (22:37)
[2022-02-12] MEDS ORDERED: TORS20TA4 PO (22:37)
[2022-02-13] VITALS: BP 168/108
[2022-02-13] MEDS: ACETAMINOPHEN 325 MG TAB PO PRN (00:52)
[2022-02-13 00:54] LABS: CREATINE KINASE, TOTAL 56 U/L (21-232); MYOGLOBIN 79 ng/mL (10-92)
[2022-02-13 04:00] VITALS: BP 187/111
[2022-02-13] MEDS ORDERED: LABETALOL 20MG SYG IV ONE (04:30)
[2022-02-13 05:10] LABS: BASOPHILS % (AUTO) 0.2 % (0.0-5.0); EOSINOPHILS % (AUTO) 1.9 % (0.0-8.0); MEAN CORPUSCULAR HEMOGLOBIN 26.9 pg (27.0-33.0); MEAN CORPUSCULAR HGB CONC 31.9 g/dL (32.0-36.0); MEAN CORPUSCULAR VOLUME 84.3 fL (79-99); MONOCYTES % (AUTO) 9.3 % (3.0-13.0); NEUTROPHILS % (AUTO) 69.9 % (40.0-77.0); PLATELET COUNT (AUTO) 76 K/uL (130-400); RED BLOOD CELL COUNT(AUTO) 2.16 MIL/uL (4.00-5.50); RED CELL DISTRIBUTION WIDTH 19.3 % (11.0-15.5); WHITE BLOOD COUNT (AUTO) 4.3 K/uL (4.8-10.8)
[2022-02-13 05:17] LABS: HEMATOCRIT 18.2 % (36-48)
[2022-02-13 05:37] LABS: CREATININE 3.8 mg/dL (0.5-1.5); MAGNESIUM 1.5 mg/dL (1.80-2.40); POTASSIUM 3.7 mmol/L (3.5-5.1)
[2022-02-13 05:50] LABS: B-TYPE NATRIURETIC PEPTIDE 1480 pg/mL (0-100)
[2022-02-13] MEDS: INSULIN LISPRO 100 UNIT/ML 3ML SQ SCH ×4 (06:08→20:50)
[2022-02-13 08:00] VITALS: BP 197/123
[2022-02-13] MEDS: TORSEMIDE 20 MG TAB PO SCH ×2 (08:41→20:49)
[2022-02-13] MEDS: AMLODIPINE 5 MG TAB PO SCH (08:41)
[2022-02-13] MEDS: ASPIRIN 81MG CHEW TAB PO SCH (08:41)
[2022-02-13] MEDS: CARVEDILOL 25 MG TABLET PO SCH ×2 (08:42→20:50)
[2022-02-13] MEDS: ENOXAPARIN SODIUM 40 MG/0.4 ML SYRINGE SQ SCH (08:49)
[2022-02-13] MEDS ORDERED: NON-FORMULARY MEDICATION 1 EACH (Amlodipine Besylate 10 MG) PO SCH ×2 (09:00)
[2022-02-13] MEDS ORDERED: TORSEMIDE 20 MG TAB PO SCH (09:00)
[2022-02-13] MEDS ORDERED: CARVEDILOL 25 MG TABLET PO SCH (09:00)
[2022-02-13] MEDS: HYDROCODONE/ACETAMINOPHEN 5/325 MG TAB PO PRN (09:39)
[2022-02-13 12:00] VITALS: BP 162/109
[2022-02-13 12:41] LABS: RETICULOCYTE % (AUTO) 5.04 % (0.42-2.23)
[2022-02-13 13:31] LABS: HEMATOCRIT 18.8 % (36-48)
[2022-02-13 13:49] LABS: % IRON SATURATION 17.1 % (22-44)
[2022-02-13] MEDS: FERROUS GLUCONATE TABLET PO SCH ×2 (13:51→20:49)
[2022-02-13 16:00] VITALS: BP 160/109
[2022-02-13] MEDS: CALCIUM AC 667MG CAP PO SCH (18:34)
[2022-02-13 19:23] LABS: HEMATOCRIT 21.6 % (36-48); MEAN CORPUSCULAR HGB CONC 32.4 g/dL (32.0-36.0); MEAN CORPUSCULAR VOLUME 83.4 fL (79-99); RED BLOOD CELL COUNT(AUTO) 2.59 MIL/uL (4.00-5.50); RED CELL DISTRIBUTION WIDTH 18.3 % (11.0-15.5); WHITE BLOOD COUNT (AUTO) 5.3 K/uL (4.8-10.8)
[2022-02-13 20:00] VITALS: BP 167/114
[2022-02-13] MEDS: SIMVASTATIN 20 MG TABLET PO SCH (20:49)
[2022-02-13] MEDS ORDERED: FUROSEMIDE 40MG VIAL IV SCH (21:30)
[2022-02-13] MEDS ORDERED: CLONIDINE 0.1 MG/ 24 HR PATCH TD SCH (21:30)
[2022-02-13] MEDS: SOLU-MEDROL 125MG VIAL IVP SCH (22:17)
[2022-02-13] MEDS: CLONIDINE HCL 0.1 MG TABLET PO PRN (23:26)
[2022-02-14] VITALS (8 sets, daily range): BP systolic 167–204; BP diastolic 108–133
[2022-02-14 00:42] LABS: HEMATOCRIT 22.2 % (36-48)
[2022-02-14] MEDS: SOLU-MEDROL 125MG VIAL IVP SCH ×3 (05:22→20:48)
[2022-02-14] MEDS: INSULIN LISPRO 100 UNIT/ML 3ML SQ SCH ×4 (06:25→20:46)
[2022-02-14 06:27] LABS: HEMATOCRIT 23.3 % (36-48)
[2022-02-14] MEDS ORDERED: IRON SUCROSE COMPLEX 100 MG in 0.9%NACL 50ML 50 ML IV SCH (09:00)
[2022-02-14] MEDS: ENOXAPARIN SODIUM 40 MG/0.4 ML SYRINGE SQ SCH (09:00)
[2022-02-14] MEDS: PANTOPRAZOLE 40 MG TAB DR PO SCH (10:04)
[2022-02-14] MEDS: ASPIRIN 81MG CHEW TAB PO SCH (10:04)
[2022-02-14] MEDS: AMLODIPINE 5 MG TAB PO SCH (10:04)
[2022-02-14] MEDS: TORSEMIDE 20 MG TAB PO SCH ×2 (10:04→20:47)
[2022-02-14] MEDS: CALCIUM AC 667MG CAP PO SCH ×3 (10:04→18:32)
[2022-02-14] MEDS: CARVEDILOL 25 MG TABLET PO SCH ×2 (10:05→20:48)
[2022-02-14 10:14] LABS: POTASSIUM 4.1 mmol/L (3.5-5.1)
[2022-02-14 12:05] LABS: HEMATOCRIT 22.2 % (36-48)
[2022-02-14] MEDS: CLONIDINE HCL 0.1 MG TABLET PO PRN ×2 (12:52→22:56)
[2022-02-14 18:12] LABS: HEMATOCRIT 21.7 % (36-48)
[2022-02-14] MEDS: SIMVASTATIN 20 MG TABLET PO SCH (20:47)
[2022-02-14] MEDS: LABETALOL 20MG SYG IV PRN (20:49)
[2022-02-14] MEDS: SPIRONOLACTONE 25 MG TAB PO SCH (21:06)
[2022-02-15] MEDS: LABETALOL 20MG SYG IV PRN ×2 (03:14→09:45)
[2022-02-15 03:48] VITALS: BP 187/112
[2022-02-15] MEDS ORDERED: NA ZIRCON CYCLOSIL(LOKELMA 10GM) PO PRN (05:00)
[2022-02-15] MEDS: SOLU-MEDROL 125MG VIAL IVP SCH ×4 (05:47→22:14)
[2022-02-15] MEDS: CLONIDINE HCL 0.1 MG TABLET PO PRN (05:48)
[2022-02-15] MEDS: INSULIN LISPRO 100 UNIT/ML 3ML SQ SCH ×4 (05:51→20:58)
[2022-02-15 07:00] VITALS: BP 190/125
[2022-02-15 07:56] LABS: MEAN CORPUSCULAR HEMOGLOBIN 27.1 pg (27.0-33.0); MEAN CORPUSCULAR HGB CONC 33.2 g/dL (32.0-36.0); MEAN CORPUSCULAR VOLUME 81.7 fL (79-99); RED BLOOD CELL COUNT(AUTO) 2.51 MIL/uL (4.00-5.50); RED CELL DISTRIBUTION WIDTH 18.6 % (11.0-15.5); WHITE BLOOD COUNT (AUTO) 4.6 K/uL (4.8-10.8)
[2022-02-15 08:03] LABS: HEMATOCRIT 20.5 % (36-48)
[2022-02-15 08:17] LABS: CREATININE 4.8 mg/dL (0.5-1.5); POTASSIUM 4.3 mmol/L (3.5-5.1)
[2022-02-15] MEDS: ASPIRIN 81MG CHEW TAB PO SCH (09:23)
[2022-02-15] MEDS: SPIRONOLACTONE 25 MG TAB PO SCH ×2 (09:23→20:58)
[2022-02-15] MEDS: AMLODIPINE 5 MG TAB PO SCH (09:24)
[2022-02-15] MEDS: TORSEMIDE 20 MG TAB PO SCH ×2 (09:24→20:56)
[2022-02-15] MEDS: CARVEDILOL 25 MG TABLET PO SCH ×2 (09:24→20:56)
[2022-02-15] MEDS: PANTOPRAZOLE 40 MG TAB DR PO SCH (09:25)
[2022-02-15] MEDS ORDERED: CLONIDINE 0.1 MG/ 24 HR PATCH TD SCH (09:30)
[2022-02-15] MEDS ORDERED: HYDRALAZINE 25MG TABLET PO SCH (09:30)
[2022-02-15] MEDS: IRON SUCROSE COMPLEX 100 MG/5 ML VIAL IVP SCH (09:35)
[2022-02-15] MEDS: CALCIUM AC 667MG CAP PO SCH ×3 (09:41→17:01)
[2022-02-15 11:46] VITALS: BP 160/100
[2022-02-15 12:15] LABS: RETICULOCYTE % (AUTO) 4.45 % (0.42-2.23)
[2022-02-15] MEDS: LACTULOSE 20 GM/30 ML UDCUP PO PRN (12:15)
[2022-02-15] MEDS: HYDRALAZINE 25MG TABLET PO SCH ×2 (14:06→20:57)
[2022-02-15 15:55] VITALS: BP 153/97
[2022-02-15 19:40] VITALS: BP 161/105
[2022-02-15] MEDS: SIMVASTATIN 20 MG TABLET PO SCH (20:57)
[2022-02-15 22:29] VITALS: BP 150/97
[2022-02-16 02:30] VITALS: BP 147/91
[2022-02-16 05:09] LABS: HEMATOCRIT 23.1 % (36-48); LYMPHOCYTES % (AUTO) 8.6 % (21.0-51.0); MEAN CORPUSCULAR HEMOGLOBIN 26.4 pg (27.0-33.0); MEAN CORPUSCULAR HGB CONC 31.6 g/dL (32.0-36.0); MEAN CORPUSCULAR VOLUME 83.7 fL (79-99); NEUTROPHILS % (AUTO) 87.7 % (40.0-77.0); PLATELET COUNT (AUTO) 92 K/uL (130-400); RED BLOOD CELL COUNT(AUTO) 2.76 MIL/uL (4.00-5.50); RED CELL DISTRIBUTION WIDTH 19.3 % (11.0-15.5); WHITE BLOOD COUNT (AUTO) 7.7 K/uL (4.8-10.8)
[2022-02-16 05:26] LABS: ALBUMIN 2.7 g/dL (3.5-5.0); BILIRUBIN,TOTAL 0.3 mg/dL (0.2-1.0); CREATININE 5.2 mg/dL (0.5-1.5); POTASSIUM 4.3 mmol/L (3.5-5.1); TOTAL PROTEIN, SERUM 5.1 g/dL (6.0-8.3)
[2022-02-16] MEDS: SOLU-MEDROL 125MG VIAL IVP SCH ×2 (05:33→13:32)
[2022-02-16] MEDS: INSULIN LISPRO 100 UNIT/ML 3ML SQ SCH ×4 (06:02→21:00)
[2022-02-16 08:00] VITALS: BP 171/110
[2022-02-16] MEDS: CALCIUM AC 667MG CAP PO SCH ×3 (08:00→18:45)
[2022-02-16] MEDS: PANTOPRAZOLE 40 MG TAB DR PO SCH (10:06)
[2022-02-16] MEDS: ENOXAPARIN SODIUM 40 MG/0.4 ML SYRINGE SQ SCH (10:07)
[2022-02-16] MEDS: AMLODIPINE 5 MG TAB PO SCH (10:07)
[2022-02-16] MEDS: CARVEDILOL 25 MG TABLET PO SCH ×2 (10:07→21:10)
[2022-02-16] MEDS: HYDRALAZINE 25MG TABLET PO SCH ×3 (10:08→21:09)
[2022-02-16] MEDS: TORSEMIDE 20 MG TAB PO SCH ×2 (10:08→21:09)
[2022-02-16] MEDS: ASPIRIN 81MG CHEW TAB PO SCH (10:08)
[2022-02-16] MEDS: IRON SUCROSE COMPLEX 100 MG/5 ML VIAL IVP SCH (10:09)
[2022-02-16] MEDS: SPIRONOLACTONE 25 MG TAB PO SCH ×2 (10:10→21:08)
[2022-02-16] MEDS: LACTULOSE 20 GM/30 ML UDCUP PO PRN (10:19)
[2022-02-16 11:27] VITALS: BP 172/108
[2022-02-16 16:00] VITALS: BP 142/96
[2022-02-16 20:00] VITALS: BP 150/101
[2022-02-16] MEDS ORDERED: SODIUM ZIRCONIUM CYCLOSILICATE 5 GM POWD.PACK PO PRN (20:30)
[2022-02-16] MEDS ORDERED: CLONIDINE 0.1 MG/ 24 HR PATCH TD SCH (21:00)
[2022-02-16] MEDS: SIMVASTATIN 20 MG TABLET PO SCH (21:10)
[2022-02-17] VITALS: BP 152/98
[2022-02-17 04:41] VITALS: BP 154/100
[2022-02-17 06:30] LABS: INR 1.08 (0.85-1.15); PROTHROMBIN TIME 11.7 SEC (9.6-11.6)
[2022-02-17] MEDS: INSULIN LISPRO 100 UNIT/ML 3ML SQ SCH ×4 (06:33→21:00)
[2022-02-17] MEDS: HYDROCODONE/ACETAMINOPHEN 5/325 MG TAB PO PRN (06:36)
[2022-02-17 08:00] VITALS: BP 137/90
[2022-02-17] MEDS: ENOXAPARIN SODIUM 40 MG/0.4 ML SYRINGE SQ SCH (09:00)
[2022-02-17 09:55] LABS: MEAN CORPUSCULAR HEMOGLOBIN 27.3 pg (27.0-33.0); MEAN CORPUSCULAR VOLUME 85.1 fL (79-99); RED BLOOD CELL COUNT(AUTO) 2.42 MIL/uL (4.00-5.50); RED CELL DISTRIBUTION WIDTH 19.1 % (11.0-15.5); WHITE BLOOD COUNT (AUTO) 8.9 K/uL (4.8-10.8)
[2022-02-17 10:11] LABS: CREATININE 5.8 mg/dL (0.5-1.5); POTASSIUM 4.4 mmol/L (3.5-5.1)
[2022-02-17 10:36] LABS: HEMATOCRIT 20.6 % (36-48)
[2022-02-17 12:00] VITALS: BP 133/80
[2022-02-17] MEDS: SPIRONOLACTONE 25 MG TAB PO SCH ×2 (12:19→20:34)
[2022-02-17] MEDS: HYDRALAZINE 25MG TABLET PO SCH ×3 (12:21→20:33)
[2022-02-17] MEDS: ASPIRIN 81MG CHEW TAB PO SCH (12:22)
[2022-02-17] MEDS: TORSEMIDE 20 MG TAB PO SCH ×2 (12:22→20:33)
[2022-02-17] MEDS: CARVEDILOL 25 MG TABLET PO SCH ×2 (12:23→20:34)
[2022-02-17] MEDS: AMLODIPINE 5 MG TAB PO SCH (12:23)
[2022-02-17] MEDS: CALCIUM AC 667MG CAP PO SCH ×3 (12:24→17:28)
[2022-02-17] MEDS: PANTOPRAZOLE 40 MG TAB DR PO SCH (12:25)
[2022-02-17] MEDS: IRON SUCROSE COMPLEX 100 MG/5 ML VIAL IVP SCH (12:39)
[2022-02-17 16:00] VITALS: BP 154/98
[2022-02-17] MEDS: CLONIDINE HCL 0.1 MG TABLET PO PRN (18:40)
[2022-02-17 20:00] VITALS: BP 154/99
[2022-02-17] MEDS: SIMVASTATIN 20 MG TABLET PO SCH (20:33)
[2022-02-18] VITALS (25 sets, daily range): BP systolic 138–167; BP diastolic 87–106
[2022-02-18 05:03] LABS: HEMATOCRIT 26.4 % (36-48); MEAN CORPUSCULAR HEMOGLOBIN 27.2 pg (27.0-33.0); MEAN CORPUSCULAR HGB CONC 31.8 g/dL (32.0-36.0); MEAN CORPUSCULAR VOLUME 85.4 fL (79-99); NUCLEATED RED BLOOD CELLS 0.2 % (0.0-0.19); RED BLOOD CELL COUNT(AUTO) 3.09 MIL/uL (4.00-5.50); RED CELL DISTRIBUTION WIDTH 18.3 % (11.0-15.5); WHITE BLOOD COUNT (AUTO) 10.5 K/uL (4.8-10.8)
[2022-02-18 05:12] LABS: CREATININE 5.8 mg/dL (0.5-1.5); POTASSIUM 4.4 mmol/L (3.5-5.1)
[2022-02-18] MEDS: INSULIN LISPRO 100 UNIT/ML 3ML SQ SCH ×4 (05:48→21:00)
[2022-02-18] MEDS: ACETAMINOPHEN 325 MG TAB PO PRN (05:56)
[2022-02-18] MEDS: CALCIUM AC 667MG CAP PO SCH ×3 (08:00→16:17)
[2022-02-18] MEDS: HYDRALAZINE 25MG TABLET PO SCH ×3 (08:45→21:58)
[2022-02-18] MEDS: SPIRONOLACTONE 25 MG TAB PO SCH ×2 (08:45→21:59)
[2022-02-18] MEDS: ASPIRIN 81MG CHEW TAB PO SCH (08:45)
[2022-02-18] MEDS: TORSEMIDE 20 MG TAB PO SCH ×2 (08:46→21:58)
[2022-02-18] MEDS: PANTOPRAZOLE 40 MG TAB DR PO SCH (08:46)
[2022-02-18] MEDS: CARVEDILOL 25 MG TABLET PO SCH ×2 (08:46→21:58)
[2022-02-18] MEDS: AMLODIPINE 5 MG TAB PO SCH (08:46)
[2022-02-18] MEDS: ENOXAPARIN SODIUM 40 MG/0.4 ML SYRINGE SQ SCH (08:46)
[2022-02-18] MEDS: IRON SUCROSE COMPLEX 100 MG/5 ML VIAL IVP SCH (08:55)
[2022-02-18] MEDS: SOLU-MEDROL 40MG VIAL IVP SCH ×2 (08:57→16:16)
[2022-02-18] MEDS ORDERED: ACET-2079 PO (11:43)
[2022-02-18] MEDS ORDERED: MIDAZOLAM HCL 1 MG/ML 2ML VIAL ONE (12:16)
[2022-02-18] MEDS ORDERED: SUCCINYLCHOLINE 200MG/10ML SYR ONE (12:16)
[2022-02-18] MEDS ORDERED: PROPOFOL 10 MG/ML 20ML VIAL IV ONE (12:16)
[2022-02-18] MEDS ORDERED: ROCURONIUM 10MG/1ML SYR 10 MG/ML ML ONE (12:17)
[2022-02-18] MEDS ORDERED: FENTANYL CITRATE PF 50 MCG/1 ML 2ML VIAL ONE (12:17)
[2022-02-18] MEDS ORDERED: ONDANSETRON 4MG INJ ONE (12:17)
[2022-02-18] MEDS ORDERED: CEFAZOLIN SODIUM 1 GM VIAL ONE (12:35)
[2022-02-18] MEDS ORDERED: BUPIVACAINE/PF 0.25% 30ML VIAL IJ ONE ×2 (12:38→12:40)
[2022-02-18] MEDS ORDERED: HYDRALAZINE 20MG/ML VIAL ONE (13:32)
[2022-02-18] MEDS ORDERED: MORPHINE 2 MG SYG IVP PRN (15:00)
[2022-02-18] MEDS: HYDROCODONE/ACETAMINOPHEN 7.5/325 MG TAB PO PRN (16:17)
[2022-02-18] MEDS: SIMVASTATIN 20 MG TABLET PO SCH (21:58)
[2022-02-19] MEDS: INSULIN LISPRO 100 UNIT/ML 3ML SQ SCH ×4 (07:28→21:00)
[2022-02-19 08:00] VITALS: BP 201/129
[2022-02-19] MEDS: SPIRONOLACTONE 25 MG TAB PO SCH ×2 (08:20→23:06)
[2022-02-19] MEDS: SOLU-MEDROL 40MG VIAL IVP SCH ×2 (08:20→16:29)
[2022-02-19] MEDS: CALCIUM AC 667MG CAP PO SCH ×3 (08:21→16:29)
[2022-02-19] MEDS: ASPIRIN 81MG CHEW TAB PO SCH (08:21)
[2022-02-19] MEDS: CARVEDILOL 25 MG TABLET PO SCH ×2 (08:22→23:06)
[2022-02-19] MEDS: AMLODIPINE 5 MG TAB PO SCH (08:22)
[2022-02-19] MEDS: PANTOPRAZOLE 40 MG TAB DR PO SCH (08:22)
[2022-02-19] MEDS: TORSEMIDE 20 MG TAB PO SCH ×2 (08:22→23:07)
[2022-02-19] MEDS: ENOXAPARIN SODIUM 40 MG/0.4 ML SYRINGE SQ SCH (08:23)
[2022-02-19] MEDS: IRON SUCROSE COMPLEX 100 MG/5 ML VIAL IVP SCH (08:23)
[2022-02-19] MEDS: HYDRALAZINE 25MG TABLET PO SCH ×3 (08:25→23:06)
[2022-02-19 08:59] LABS: HEMATOCRIT 26.7 % (36-48); LYMPHOCYTES % (AUTO) 5.7 % (21.0-51.0); MEAN CORPUSCULAR HEMOGLOBIN 27.8 pg (27.0-33.0); MEAN CORPUSCULAR HGB CONC 32.6 g/dL (32.0-36.0); MEAN CORPUSCULAR VOLUME 85.3 fL (79-99); MONOCYTES % (AUTO) 2.2 % (3.0-13.0); NEUTROPHILS % (AUTO) 89.6 % (40.0-77.0); PLATELET COUNT (AUTO) 109 K/uL (130-400); RED BLOOD CELL COUNT(AUTO) 3.13 MIL/uL (4.00-5.50); RED CELL DISTRIBUTION WIDTH 18.5 % (11.0-15.5); WHITE BLOOD COUNT (AUTO) 9.5 K/uL (4.8-10.8)
[2022-02-19 09:16] LABS: CREATININE 5.9 mg/dL (0.5-1.5); POTASSIUM 4.8 mmol/L (3.5-5.1)
[2022-02-19 10:58] LABS: INR 1.09 (0.85-1.15); PROTHROMBIN TIME 11.8 SEC (9.6-11.6)
[2022-02-19 10:59] LABS: PARTIAL THROMBOPLASTIN TIME 32.2 SEC (26.3-35.5)
[2022-02-19 11:23] VITALS: BP 207/111
[2022-02-19] MEDS: HYDROCODONE/ACETAMINOPHEN 7.5/325 MG TAB PO PRN (13:48)
[2022-02-19 15:00] VITALS: BP 158/95
[2022-02-19 20:00] VITALS: BP 170/101
[2022-02-19 21:04] LABS: HEPATITIS B SURFACE ANTIGEN Non-Reactive (Negative)
[2022-02-19] MEDS: SIMVASTATIN 20 MG TABLET PO SCH (23:05)
[2022-02-20 00:12] VITALS: BP 189/116
[2022-02-20] MEDS: SOLU-MEDROL 40MG VIAL IVP SCH ×3 (00:22→17:02)
[2022-02-20] MEDS: LABETALOL 20MG SYG IV PRN ×2 (00:57→07:35)
[2022-02-20 04:20] VITALS: BP 175/109
[2022-02-20] MEDS: CLONIDINE HCL 0.1 MG TABLET PO PRN ×2 (04:49→11:44)
[2022-02-20 06:30] LABS: HEMATOCRIT 25.6 % (36-48); MEAN CORPUSCULAR HEMOGLOBIN 27.5 pg (27.0-33.0); MEAN CORPUSCULAR HGB CONC 32.8 g/dL (32.0-36.0); MEAN CORPUSCULAR VOLUME 83.9 fL (79-99); NUCLEATED RED BLOOD CELLS 0.2 % (0.0-0.19); PLATELET COUNT (AUTO) 105 K/uL (130-400); RED BLOOD CELL COUNT(AUTO) 3.05 MIL/uL (4.00-5.50); WHITE BLOOD COUNT (AUTO) 10.4 K/uL (4.8-10.8)
[2022-02-20 06:31] LABS: CREATININE 6.1 mg/dL (0.5-1.5); POTASSIUM 5.1 mmol/L (3.5-5.1)
[2022-02-20 07:00] VITALS: BP 179/107
[2022-02-20] MEDS: INSULIN LISPRO 100 UNIT/ML 3ML SQ SCH ×4 (07:09→21:00)
[2022-02-20] MEDS: IRON SUCROSE COMPLEX 100 MG/5 ML VIAL IVP SCH (09:25)
[2022-02-20] MEDS: PANTOPRAZOLE 40 MG TAB DR PO SCH (09:25)
[2022-02-20] MEDS: SPIRONOLACTONE 25 MG TAB PO SCH ×2 (09:25→20:13)
[2022-02-20] MEDS: AMLODIPINE 5 MG TAB PO SCH (09:26)
[2022-02-20] MEDS: TORSEMIDE 20 MG TAB PO SCH ×2 (09:26→20:13)
[2022-02-20] MEDS: HYDRALAZINE 25MG TABLET PO SCH ×3 (09:26→20:13)
[2022-02-20] MEDS: CARVEDILOL 25 MG TABLET PO SCH ×2 (09:26→20:13)
[2022-02-20] MEDS: ASPIRIN 81MG CHEW TAB PO SCH (09:27)
[2022-02-20] MEDS: CALCIUM AC 667MG CAP PO SCH ×3 (09:30→17:02)
[2022-02-20 11:00] VITALS: BP_SYST 127; BP_SYST 175; BP_DIAS 102; BP_DIAS 75
[2022-02-20] MEDS: ENOXAPARIN SODIUM 40 MG/0.4 ML SYRINGE SQ SCH (11:47)
[2022-02-20 16:00] VITALS: BP 158/93
[2022-02-20] MEDS: SIMVASTATIN 20 MG TABLET PO SCH (20:13)
[2022-02-20 20:21] VITALS: BP 159/100
[2022-02-21 00:17] VITALS: BP 164/106
[2022-02-21 04:03] VITALS: BP 163/108
[2022-02-21 05:41] LABS: HEMATOCRIT 25.1 % (36-48); LYMPHOCYTES % (AUTO) 4.6 % (21.0-51.0); MEAN CORPUSCULAR HEMOGLOBIN 27.3 pg (27.0-33.0); MEAN CORPUSCULAR HGB CONC 32.3 g/dL (32.0-36.0); MEAN CORPUSCULAR VOLUME 84.5 fL (79-99); MONOCYTES % (AUTO) 2.6 % (3.0-13.0); NEUTROPHILS % (AUTO) 88.9 % (40.0-77.0); PLATELET COUNT (AUTO) 107 K/uL (130-400); RED BLOOD CELL COUNT(AUTO) 2.97 MIL/uL (4.00-5.50); RED CELL DISTRIBUTION WIDTH 17.9 % (11.0-15.5); WHITE BLOOD COUNT (AUTO) 7.4 K/uL (4.8-10.8)
[2022-02-21] MEDS: INSULIN LISPRO 100 UNIT/ML 3ML SQ SCH ×3 (05:58→16:30)
[2022-02-21 06:09] LABS: ALBUMIN 2.8 g/dL (3.5-5.0); BILIRUBIN,TOTAL 0.3 mg/dL (0.2-1.0); POTASSIUM 5.4 mmol/L (3.5-5.1); TOTAL PROTEIN, SERUM 4.9 g/dL (6.0-8.3)
[2022-02-21 07:30] VITALS: BP 180/111
[2022-02-21] MEDS: HYDRALAZINE 25MG TABLET PO SCH ×2 (09:05→14:11)
[2022-02-21] MEDS: SOLU-MEDROL 40MG VIAL IVP SCH ×2 (09:06)
[2022-02-21] MEDS: TORSEMIDE 20 MG TAB PO SCH (09:06)
[2022-02-21] MEDS: SPIRONOLACTONE 25 MG TAB PO SCH (09:06)
[2022-02-21] MEDS ORDERED: CARV25TA PO (09:06)
[2022-02-21] MEDS ORDERED: HYDR25 PO (09:06)
[2022-02-21] MEDS ORDERED: ASPI-1005 PO (09:06)
[2022-02-21] MEDS ORDERED: AMLO5TAB4 PO (09:06)
[2022-02-21] MEDS: AMLODIPINE 5 MG TAB PO SCH (09:06)
[2022-02-21] MEDS: PANTOPRAZOLE 40 MG TAB DR PO SCH (09:06)
[2022-02-21] MEDS: CALCIUM AC 667MG CAP PO SCH ×2 (09:06→12:03)
[2022-02-21] MEDS: ASPIRIN 81MG CHEW TAB PO SCH (09:06)
[2022-02-21] MEDS ORDERED: SPIR25TA6 PO (09:06)
[2022-02-21] MEDS: CARVEDILOL 25 MG TABLET PO SCH (09:06)
[2022-02-21] MEDS: IRON SUCROSE COMPLEX 100 MG/5 ML VIAL IVP SCH (09:07)
[2022-02-21] MEDS: ENOXAPARIN SODIUM 40 MG/0.4 ML SYRINGE SQ SCH (09:09)
[2022-02-21 11:00] VITALS: BP 168/103
[2022-02-21] MEDS: CLONIDINE HCL 0.1 MG TABLET PO PRN (12:04)
[2022-02-21 16:00] VITALS: BP 162/99
[2022-02-27] MEDS ORDERED: PRED20TA3 PO (05:01)
[2022-02-27] MEDS ORDERED: AMLO-257 PO (05:01)
[2022-02-27] MEDS ORDERED: FERR-72 PO (05:01)
[2022-02-27] MEDS ORDERED: ACET-2079 PO (05:01)
[2022-02-27] MEDS ORDERED: PRED5TAB PO (05:01)
[2022-02-27] MEDS ORDERED: MYCO500T5 PO (05:01)
[2022-02-27] MEDS ORDERED: CALC667T6 PO (05:01)
[2022-02-27] MEDS ORDERED: SPIR25TA6 PO (05:01)
[2022-02-27] MEDS ORDERED: INDA2.5T5 PO (05:01)
[2022-02-27] MEDS ORDERED: PANT40TA54 PO (05:01)
[2022-03-03] MEDS ORDERED: PANT40TA55 PO (16:13)
== END 2022-02-21 18:15 | disposition home or self-care (01) | DRG 673 ==
LOC: EDH 16:12 → EDHIP 18:38 → OBSVTOIN 18:38 → 3CH 21:40
PROVIDERS: ADMIT Internal Medicine Critical Care Medicine; ATTEND Internal Medicine Critical Care Medicine
PROC: 30233N1 Transfusion of Nonautologous Red Blood Cells into Peripheral Vein, Percutaneous Approach (ICD-10-PCS; 2022-02-17)
PROC: 3E1M39Z Irrigation of Peritoneal Cavity using Dialysate, Percutaneous Approach (ICD-10-PCS; 2022-02-18)
PROC: 0WHG43Z Insertion of Infusion Device into Peritoneal Cavity, Percutaneous Endoscopic Approach (ICD-10-PCS; principal; 2022-02-18 12:40)
DX: N17.9 Acute kidney failure, unspecified (principal); I50.33 Acute on chronic diastolic (congestive) heart failure; E44.0 Moderate protein-calorie malnutrition; E87.3 Alkalosis; D69.3 Immune thrombocytopenic purpura; I12.0 Hypertensive chronic kidney disease with stage 5 chronic kidney disease or end stage renal disease; Z68.41 Body mass index [BMI] 40.0-44.9, adult; M32.9 Systemic lupus erythematosus, unspecified; N18.6 End stage renal disease; D50.9 Iron deficiency anemia, unspecified; D69.6 Thrombocytopenia, unspecified; E87.70 Fluid overload, unspecified; I16.0 Hypertensive urgency; I27.20 Pulmonary hypertension, unspecified; Z99.2 Dependence on renal dialysis; Z20.822 Contact with and (suspected) exposure to COVID-19; D63.1 Anemia in chronic kidney disease
CPT/HCPCS: 36415; 36430; 36600; 71045; 76770; 80048; 80053; 81001; 81025; 82270; 82435; 82550; 82607; 82728; 82803; 82947; 82948; 83010; 83605; 83690; 83735; 83874; 83880; 84100; 84132; 84145; 84295; 84484; 85014; 85018; 85025; 85027; 85045; 85610; 85730; 86156; 86704; 86706; 86850; 86870; 86880; 86900; 86901; 86922; 87340; 87635; 87804; 93005; 93306; 93356; 94640; 94664; A4606; C9803; G0378; J0330; J0360; J0690; J1650; J1756; J1940; J2250; J2405; J2704; J2920; J2930; J3010; J3490; J7030; P9016